=== PATIENT | female | born 2000 | race Caucasian/White ===

== ENCOUNTER 2020-11-21 05:28 | Emergency (ER) | payer OTHER ==
[~2020-11-21] VITALS: Ht 160 cm; Wt 72.7 kg
[2020-11-21] MEDS ORDERED: PROPARACAINE 0.5% OPHTH SOL 15ML XX ONE (06:55)
[2020-11-21] MEDS ORDERED: FLUORESCEIN OPHTH 1 MG STRIP XX ONE (06:55)
[2020-11-21] MEDS ORDERED: ACETAMINOPHEN 500 MG TAB PO ONE (07:50)
[2020-11-21] MEDS ORDERED: ERYTHROMYCIN OPHTH OINT OD ONE (07:50)
[2020-11-21] MEDS ORDERED: IBUP80TA PO (08:27)
[2020-11-21] MEDS ORDERED: OCUF0.25 OD (08:27)
[2020-11-21] MEDS ORDERED: OXYC1TAB23 PO (08:35)
[2020-11-21 08:56] VITALS: BP 121/81
== END 2020-11-21 08:58 | disposition home or self-care (01) ==
LOC: M ED 05:28
DX: S05.01XA Injury of conjunctiva and corneal abrasion without foreign body, right eye, initial encounter (principal); X58.XXXA Exposure to other specified factors, initial encounter; Y92.410 Unspecified street and highway as the place of occurrence of the external cause; Y93.9 Activity, unspecified; Y99.9 Unspecified external cause status